=== PATIENT | female | born 1965 | race Caucasian/White ===

== ENCOUNTER 2021-12-05 05:56 | Day surgery (SDC) | payer BC ==
[2021-11-29 15:27] VITALS: BMI 36.8
[2021-12-05] MEDS ORDERED: Lidocaine 1% MPF 2 ML VIAL ONE (06:45)
[2021-12-05] MEDS ORDERED: PROPOFOL 20 ML ONE ×2 (07:15→07:42)
[2021-12-05] MEDS ORDERED: Lidocaine 1% PF 5 ML VIAL ONE (07:15)
== END 2021-12-05 08:14 | disposition home or self-care (01) ==
LOC: CSHSDC 05:56
PROVIDERS: ATTEND Surgery
PROC: 0DB78ZX Excision of Stomach, Pylorus, Via Natural or Artificial Opening Endoscopic, Diagnostic (ICD-10-PCS; principal; 2021-12-05)
DX: K31.9 Disease of stomach and duodenum, unspecified (principal); K44.9 Diaphragmatic hernia without obstruction or gangrene; K29.70 Gastritis, unspecified, without bleeding; G47.33 Obstructive sleep apnea (adult) (pediatric); E66.01 Morbid (severe) obesity due to excess calories; Z68.37 Body mass index [BMI] 37.0-37.9, adult; E03.9 Hypothyroidism, unspecified; E11.9 Type 2 diabetes mellitus without complications; E78.5 Hyperlipidemia, unspecified; Z79.84 Long term (current) use of oral hypoglycemic drugs; Z79.899 Other long term (current) drug therapy
CPT/HCPCS: 88305; J2704

== ENCOUNTER 2024-08-03 08:17 | Outpatient (CLI) | payer BC | END 2024-08-03 08:18 | disposition home or self-care (01) | LOC: CSHSLEEP 08:17 | PROVIDERS: ATTEND Family Medicine | DX: R53.83 Other fatigue (principal); E66.9 Obesity, unspecified; Z68.35 Body mass index [BMI] 35.0-35.9, adult; G47.10 Hypersomnia, unspecified | CPT/HCPCS: 95800 ==

== ENCOUNTER 2024-09-18 08:48 | Outpatient (CLI) | payer BC | END 2024-09-18 08:49 | disposition home or self-care (01) | LOC: CSHSLEEP 08:48 | PROVIDERS: ATTEND Family Medicine | DX: G47.33 Obstructive sleep apnea (adult) (pediatric) (principal); R53.83 Other fatigue; E66.9 Obesity, unspecified; Z68.35 Body mass index [BMI] 35.0-35.9, adult; G25.89 Other specified extrapyramidal and movement disorders | CPT/HCPCS: 95810 ==

== ENCOUNTER 2025-07-02 12:12 | Outpatient (CLI) | payer BC | END 2025-07-02 12:13 | disposition home or self-care (01) | LOC: CSHMAMMO 12:12 | PROVIDERS: ATTEND Family Medicine | DX: Z12.31 Encounter for screening mammogram for malignant neoplasm of breast (principal); Z80.3 Family history of malignant neoplasm of breast; Z98.890 Other specified postprocedural states | CPT/HCPCS: 77063; 77067 ==